=== PATIENT | female | born 1930 | race Caucasian/White ===

== ENCOUNTER 2017-04-27 09:23 | Emergency (ER) | payer MEDICARE, OTHER ==
[~2017-04-27] VITALS: Ht 172.7 cm; Wt 63.6 kg
[2017-04-27 09:29] VITALS: BP 144/97; RESP 14; O2SAT 98
--- NOTE | 2017-04-27 09:45 | ED.REPORT ---
HPI-General Illness Date of Service Apr 27, 2017 ED Provider: Yousif Topete MD Pt is an 86 y/o female with a hx of Grave's disease (s/p thyroidectomy) presents to the ED complaining of pain in the left upper teeth and left maxillary sinus/sunni area, onset 6 days ago. She specifically experiences pain when she chews and swallows. The pt states she had similar sx, though not as severe, last month. At the time she was diagnosed with sinusitis and prescribed Amoxicillin at Urgent Care which improved her sx. The pain returned 6 days ago and Augmentin rx from has not helped this time. Associated sx include difficulty hearing but this is chronic and not new. She denies earache and left maxillary pain upon palpation. She also had X-rays taken at her dentist's appointment which came back normal and she was told that this pain was not related to her teeth. The pt had sinus problems as a child. She took an ibuprofen an hour ago but it didn't improve her sx. Nursing Notes Stated Complaint: PAIN IN SINUS AREA Chief Complaint: ENT & Mouth Nursing Notes Reviewed: Yes Allergies: Coded Allergies: No Known Allergies (Unverified , 04/27/17) Scheduled Amoxicillin/Clav K 875-125 mg (Augmentin 875-125 mg) 1 Each Tablet 1 TABLET PO BID General Time Seen by MD: 09:43 Chief Complaint Other (Left maxillary pain) Hx Obtained From: Patient Arrived By: Walk-in Sudden in Onset?: Yes Onset Occurred: 6 days ago Symptom Duration: Since onset Location: : Face (left maxillary area) Quality: Painful Radiation: : Does not radiate Severity: Current: Moderate Severity: Maximum: Severe Recent Healthcare: Recent doctor visit Similar Sx Previous: Yes Past Medical History Past Medical History Grave's disease Past Surgical History Thyroidectomy Smoking History Unknown if Ever Smoker Social History Other Social History: Good social support Ambulatory Status Independent Review of Systems Reports: left maxillary pain Reports: left upper teeth Full Review of Systems Ears / Nose / Throat: Reports: Hearing loss bilateral, Denies: Earache bilateral Complete sys rev & neg: except as marked. Physical Exam Vital Signs Vital Signs Date Time Temp Pulse Resp B/P Pulse Ox O2 Delivery O2 Flow Rate FiO2 04/27/17 09:29 36.0 92 14 144/97 98 Room Air Initial VS: Reviewed Extremities: Vascular intact, Neuro intact, No swelling, No tenderness General/Constitutional: Awake, Alert Head / Eyes: Atraumatic, Normocephalic, EOMI No facial swelling. No maxillary tenderness. ENT: Atraumatic, Tympanic membs NL Nose: Positive: Turbinates swollen (left greater than the right) No tap tederness about the teeth in the left upper jaw. However, she has multiple teeth absent in that area. No evidence of dental abscess. Neck: Atraumatic, Supple, No adenopathy (no anterior cervical adenopathy) Respiratory / Chest: Atraumatic, Breath sounds NL, Breath sounds = bilat, No respiratory distress, No rales, No rhonchi, No wheezing Trachea midline Cardiovascular: Heart rate NL, Regular rhythm, Heart sounds NL, No gallop, No murmurs, No rubs Abdomen: Atraumatic, Soft, Non-tender, No guarding, No rebound, BS normoactive , No distention Back: Atraumatic, Full range of motion Lower Extremity / Pelvis / MS: Atraumatic, Full range of motion, No swelling, Non-tender Skin: Atraumatic, Color NL, No rash, Warm, Dry Neurologic: Oriented X3, Speech NL, No motor deficits, No sensory deficits Interpretation & Diagnostics PROCEDURE: CT SINUSES ([id number]) IMPRESSION: 1. There is mild scattered mucosal thickening of ethmoid air cells and minimal scattered mucosal thickening of the maxillary sinuses. 2. There is bilateral courtney bullosa variant of the anterior aspect of the middle turbinates bilaterally left greater than right with left right nasal septal bowing. Dictated by: Dima Byers M.D. on 04/27/2017 at 10:22 Approved by: Dima Byers M.D. on 04/27/2017 at 10:25 Re-Eval/Medical Decision Med Decision/Clinical Course Patient is a 86-year-old female who presents with left maxillary/jaw pain that is worse with chewing. She is on her second course of antibiotics though reports that these have not helped. She denies any fevers, congestion or other symptoms suggestive of bacterial sinusitis. She is not immunocompromised and is at relatively low risk for bacterial sinusitis. Examination and history are not consistent with bacterial sinusitis. She has been referred to ear nose and throat from urgent care and has an appointment on Saturday with Dr. Pasquale Shell. In my assessment there is no evidence of acute dental injury, abscess or obvious dental caries. I suspect that the patient's presentation may be related to TMJ syndrome. Discussed with ENT care transitions nurse and we opted to proceed with a noncontrast CT of the sinuses to definitively rule out any other significant pathology. CT scan was obtained as below: 1. There is mild scattered mucosal thickening of ethmoid air cells and minimal scattered mucosal thickening of the maxillary sinuses. 2. There is bilateral courtney bullosa variant of the anterior aspect of the middle turbinates bilaterally left greater than right with left right nasal septal bowing. In my assessment I doubt that any of the above findings are acutely causing the patient's symptoms today. She is near completing her course of Augmentin and will finish the antibiotics though I doubt that they are of much utility. She was treated with Tylenol here in the emergency room and reports feeling better. She will continue with a soft diet as this is more comfortable for her to chew she will follow up first thing next week with ENT. Prior to discharge follow-up and return precautions were reviewed in detail with the patient and her son who verbalized understanding and agreement with the plan. The patient was discharged in stable condition. Time of Eval: 10:08 Re-Evaluation/Progress Note: Discussed imaging results, diagnosis and plan to discharge with the pt. Pt understands and agrees with the plan. F/U instructions and RTER warning given. All questions addressed. 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 Recommend non-contrast sinus CT to rule out sinnucitis and follow up on Saturday Counseled Regarding: Diagnosis, Lab results, Need for follow-up, When/why to return to ED Discharge & Departure Primary Impression: Temporomandibular joint (TMJ) pain Laterality: left Qualified Code: M26.622 - Arthralgia of left temporomandibular joint Additional Impressions: Pain, dental Tooth pain with chewing Disposition: Home Discharge Condition All VS Reviewed: Yes Condition: Stable Additional Instructions: Thank you for seeking care at emergency room. It is difficult for us to make definitive diagnoses in the ED but we believe that you are experiencing TMJ pain. Our primary goal today in the ED was to evaluate you for any life-threatening conditions. Your evaluation was reassuring. Please follow up next week with the ear nose and throat doctors as previously arranged. While I am not convinced you have bacterial sinusitis you should complete the full course of antibiotics that were prescribed previously. You may take Tylenol 650 mg 3 times a day for pain. You should return to the ED immediately if you develop worsening pain, swelling , fevers, vomiting, cough, shortness of breath, chest pain, lightheadedness, weakness or any other concerning signs or symptoms. Thank you for letting us partake in your care today. Referrals: Tony Paulino MD (PCP) Scribe Attestation Portions of this note were transcribed by Vito Lyman. I, , personally performed the history, physical exam and medical decision-making;I reviewed and confirmed the accuracy of the information in the transcribed note. Signed by Shaniqua Moore. 04/27/17 10:55 copies to: Tony Paulino MD, Beck O MD Apr 27, 2017 09:45 Vito Lyman Apr 27, 2017 10:05
[2017-04-27] MEDS ORDERED: AMOX-366 PO (09:55)
[2017-04-27] MEDS ORDERED: HYDROmorphone 1 mg/mL Inj IVPUSH ONE (10:15)
[2017-04-27] MEDS ORDERED: 0.9% Sodium Chloride 1,000 ML IV ONE (10:15)
--- NOTE | 2017-04-27 10:27 | DRSVH ---
PROCEDURE: CT SINUSES ([id number]) INDICATIONS: assess for sinusitis TECHNIQUE: Noncontrast 3.0 mm axial images acquired from the frontal sinuses to the mid-sella, with coronal and sagittal reformats. COMPARISON: None. FINDINGS: Image quality: Good Maxillary Sinuses: No bony remodeling or destruction. There is minimal scattered mucosal thickening of the maxillary sinuses. Ethmoid Air Cells: No bony remodeling or destruction. Sinuses show scattered mucosal thickening of mild amount. Sphenoid Sinuses: No bony remodeling or destruction. Sinuses are clear. Frontal Sinuses: No bony remodeling or destruction. Sinuses are clear. Ostiomeatal Complexes: Ostiomeatal complexes are patent. There mildly narrowed as seen in series 3 i mage 19 by minimal thickening of the mucosa. No Corina cells. Miscellaneous: Visualized intra-orbital contents are normal. There is courtney bullosa variation of th e anterior aspect of the middle turbinates left greater than right. There is some left to right nasal septal deviation. IMPRESSION: 1. There is mild scattered mucosal thickening of ethmoid air cells and minimal scattered mucosal thic kening of the maxillary sinuses. 2. There is bilateral courtney bullosa variant of the anterior aspect of the middle turbinates bilatera lly left greater than right with left right nasal septal bowing. Dictated by: Dima Byers M.D. on 04/27/2017 at 10:22 Approved by: Dima Byers M.D. on 04/27/2017 at 10:25
[2017-04-27 10:58] VITALS: BP 138/88; PULSE 90; RESP 16; O2SAT 98
== END 2017-04-27 10:59 | disposition home or self-care (01) ==
LOC: SED 09:23
DX: M26.622 Arthralgia of left temporomandibular joint (principal)